=== PATIENT | male | born 1985 | race African-American/Black ===

== ENCOUNTER 2016-12-02 19:28 | Emergency (ER) | payer OTHER ==
[~2016-12-02] VITALS: Ht 177.8 cm; Wt 73.5 kg
[2016-12-02 19:35] VITALS: BP 129/72
== END 2016-12-02 20:00 | disposition home or self-care (01) ==
LOC: ER 19:29
DX: R09.82 Postnasal drip (principal); J30.9 Allergic rhinitis, unspecified; F17.200 Nicotine dependence, unspecified, uncomplicated
CPT/HCPCS: A4606; Z7610

== ENCOUNTER 2025-01-27 22:43 | Emergency (ER) | payer SELFPAY | END 2025-01-28 00:21 | disposition left against medical advice (07) | LOC: ER 22:46 | DX: Z53.21 Procedure and treatment not carried out due to patient leaving prior to being seen by health care provider (principal) ==